=== PATIENT | female | born 1965 | race Caucasian/White ===

== ENCOUNTER 2018-03-15 22:41 | Emergency (ER) | payer OTHER ==
[~2018-03-15] VITALS: Ht 152.4 cm; Wt 79.4 kg
[~2018-03-15 22:41] MED LIST: ALBU-136 IH
[2018-03-15 22:42] VITALS: BP 149/100
--- NOTE | 2018-03-15 22:49 | NUR ---
PT TAKEN TO BED 7
[2018-03-15] MEDS ORDERED: ALBUTEROL SULFATE/IPRATROPIU 3 ML SOL IH ONE (22:55)
--- NOTE | 2018-03-15 22:55 | NUR ---
52 Y/O F W/C/O COUGH, SOB, AND THROBBING HEADACHE X 3 DAYS.PT STATES INHALERS NOT WORKING THIS TIME AT HOME. MED HX ASTHMA, HTN. BILATERAL WHEEZES NOTED. ER MD MADE AWARE.
--- NOTE | 2018-03-15 23:00 | NUR ---
RT AT BEDSIDE
--- NOTE | 2018-03-15 23:07 | NUR ---
Kodi brownlee in [facility] - 03/15/18 at 2308 by MARK RT AT BEDSIDE
--- NOTE | 2018-03-15 23:31 | NUR ---
X-Ray at bedside.
--- NOTE | 2018-03-15 23:36 | NUR ---
Kodi brownlee in [facility] - 03/15/[address] at [address] Wong evaluating patient at bedside.
--- NOTE | 2018-03-15 23:39 | NUR ---
PT RESTING IN BED, ASLEEP. NO S/S OF DISTRESS NOTED AT THE MOMENT. WILL CONT TO MONITOR.
[2018-03-15] MEDS ORDERED: KETOROLAC 30 MG/ML VIAL IM ONE (23:55)
[2018-03-15] MEDS ORDERED: methylPREDNISolone SS 125 MG in WATER STERILE 2 ML IM ONE (23:55)
--- NOTE | 2018-03-15 23:59 | NUR ---
BILATERAL WHEEZES CONTINUES ER MD NOTIFIED, RT CALLED AT BEDSIDE.
[2018-03-16] MEDS ORDERED: ALBUTEROL SULFATE/IPRATROPIU 3 ML SOL IH ONE
[2018-03-16] MEDS ORDERED: methylPREDNISolone SS 125 MG/2 ML VIAL ONE (00:03)
--- NOTE | 2018-03-16 00:05 | NUR ---
Respiratory Therapist at bedside for respiratory intervention.
[2018-03-16 00:28] VITALS: BP 123/76
--- NOTE | 2018-03-16 00:28 | NUR ---
Patient discharged with v/s stable. Written and verbal after care instructions given and explained. Patient alert, oriented and verbalized understanding of instructions. Ambulatory with steady gait. All questions addressed prior to discharge. ID band removed. Patient advised to follow up with PMD. Rx of PREDNISONE, AND ALBUTEROL SULFATE given. Patient educated on indication of medication including possible reaction and side effects. Opportunity to ask questions provided and answered.
== END 2018-03-16 00:28 | disposition home or self-care (01) ==
LOC: MED 22:41
DX: J45.901 Unspecified asthma with (acute) exacerbation (principal); J06.9 Acute upper respiratory infection, unspecified; R51 Headache; Z79.899 Other long term (current) drug therapy
CPT/HCPCS: 71045; 94640; 96372; 99284; J1885; J2930; J7620; Q0092